=== PATIENT | male | born 1985 | race Caucasian/White ===

== ENCOUNTER 2018-04-11 15:14 | Emergency (ER) | payer OTHER ==
[2018-04-11] MEDS ORDERED: Sodium Chloride 0.9% 1,000 ML IV ONE (15:36)
[2018-04-11] MEDS ORDERED: Albuterol 0.083% Inhal Sol (2.5 mg/3 mL) UD INH STA ×2 (15:37→17:31)
[2018-04-11] MEDS ORDERED: Sodium Chloride 0.9% 1,000 ML ONE (15:59)
[2018-04-11 17:08] VITALS: BP 116/70; PULSE 86; RESP 18; TEMP 99.2; O2SAT 98
[2018-04-11] MEDS ORDERED: Albuterol 0.083% Inhal Sol (2.5 mg/3 mL) UD ONE (17:35)
--- NOTE | 2018-04-11 17:54 | C.PDOC ---
History Of Present Illness 33-year-old male presents to the ED for evaluation of fever, shortness of breath, cough, and generalized body aches which began around four days ago. Patient is also complaining of abdominal pain, nausea, vomiting, and diarrhea. Patient states that he did not receive the flu vaccination this season. He is currently afebrile in the ED and denies taking any medication. Patient denies headache and back pain. HPI: Influenza Time Seen by Provider: 04/11/18 15:30 Chief Complaint: Flu-like Symptoms History Per: Patient Exam Limitations: no limitations Past Medical History Reviewed: Historical Data, Nursing Documentation, Vital Signs Vital Signs: Last Vital Signs Temp 99.2 F 04/11/18 17:07 Pulse 86 04/11/18 17:07 Resp 18 04/11/18 17:07 BP 116/70 04/11/18 17:07 Pulse Ox 98 04/11/18 17:07 - Medical History PMH: No Chronic Diseases Surgical History: No Surg Hx Family History: States: No Known Family Hx - Social History Hx Alcohol Use: No Hx Substance Use: No - Immunization History Hx Tetanus Toxoid Vaccination: No Hx Influenza Vaccination: No Hx Pneumococcal Vaccination: No Review Of Systems Constitutional: Positive for: Fever Respiratory: Positive for: Cough, Shortness of Breath Gastrointestinal: Positive for: Nausea, Vomiting, Abdominal Pain, Diarrhea Musculoskeletal: Positive for: Other (generalized body aches). Negative for: Back Pain Neurological: Negative for: Headache Physical Exam - Physical Exam Appears: Non-toxic, No Acute Distress, Other (ill appearing ) Skin: Normal Color, Warm, Dry Head: Atraumatic, Normacephalic Eye(s): bilateral: Normal Inspection Ear(s): Bilateral: Normal Nose: Normal, No Discharge Oral Mucosa: Moist Throat: Erythema (mild ), No Exudate, No Drooling Neck: Supple Lymphatic: No Adenopathy Chest: Symmetrical, No Deformity, No Tenderness Cardiovascular: Rhythm Regular, No Murmur Respiratory: Normal Breath Sounds, No Rales, No Rhonchi, No Wheezing Gastrointestinal/Abdominal: Soft, No Tenderness, No Guarding, No Rebound Extremity: Normal ROM, Capillary Refill (less than 2 seconds ) Neurological/Psych: Oriented x3, Normal Speech, Normal Cognition - ECG O2 Sat by Pulse Oximetry: 98 Pulse Ox Interpretation: Normal Disposition Counseled Patient/Family Regarding: Diagnosis, Need For Followup, Rx Given - Disposition Referrals: [facility] [Outside] Disposition: HOME/ ROUTINE Disposition Time: 17:51 Condition: STABLE Prescriptions: Albuterol HFA [Ventolin HFA 90 mcg/actuation (8 g)] 1 puff IH QID PRN #1 puff PRN Reason: Cough Ibuprofen [Motrin] 600 mg PO TID #15 tab Prednisone [Deltasone] 60 mg PO DAILY #12 tablet Instructions: Acute Bronchitis, Adult (DC) Forms: General Discharge Instructions, [employer] [facility] (Chinese), Work Excuse - POA Present On Arrival: None - Clinical Impression Clinical Impression: Influenza-like illness - Scribe Statement The provider has reviewed the documentation as recorded by the Scribe (Gwen Farrell) Provider Attestation: All medical record entries made by the Scribe were at my direction and personally dictated by me. I have reviewed the chart and agree that the record accurately reflects my personal performance of the history, physical exam, medical decision making, and the department course for this patient. I have also personally directed, reviewed, and agree with the discharge instructions and disposition.
== END 2018-04-11 18:12 | disposition home or self-care (01) ==
LOC: C.ER 15:14
DX: J11.1 Influenza due to unidentified influenza virus with other respiratory manifestations (principal)
CPT/HCPCS: 94640; 96360; 99283; J7030